=== PATIENT | female | born 1960 | race African-American/Black ===

== ENCOUNTER 2017-02-28 15:21 | Inpatient (IN) | payer MEDICAID, OTHER ==
[~2017-02-28] VITALS: Ht 154.9 cm; Wt 82.6 kg
[~2017-02-28 15:21] MED LIST: AMLO10TA80 PO; LEVVL SUBCUT; LIDOCAINE HCL 1% 20ML VIAL (Pyxis) INJ ONE; METO50TA5 PO; SODIUM BICARBONATE 4% (2.4MEQ) 5ML VIAL IV ONE
[2017-02-28 16:38] LABS: HEMATOCRIT. 28.7 % (36.0-48.0); MEAN CORPUSCULAR HEMOGLOBIN 26.6 pg (28.0-32.0); MEAN CORPUSCULAR VOLUME 94.7 fL (81.0-99.0); MEAN PLATELET VOLUME 9.2 fl (7.4-10.4); PLATELET 498 x1000/uL (130-400); RED BLOOD CELL COUNT 3.03 mill/uL (4.2-5.4); RED CELL DISTRIBUTION WIDTH 17.5 % (11.6-14.6); WHITE BLOOD COUNT 15.1 x1000/uL (4.5-11.0)
[2017-02-28 16:43] LABS: BG BASE EXCESS -25.6 mmol/L (-2.0-2.0); BG DEOXYHEMOGLOBIN 3.5 % (0.0-5.0); BG FRACTION INSPIRED OXYGEN 21; BG HCO3 ACT 4.4 mmol/L (22.0-26.0); BG METHEMOGLOBIN 0.3 % (0.0-1.5); BG OXYGEN SATURATION 96.5 % (92.0-98.5); BG OXYHEMOGLOBIN 96.2 % (94.0-97.0); BG PCO2 19.3 mmHg (35.0-45.0); BG PH 6.971 (7.350-7.450); BG PO2 112.9 mmHg (75.0-100.0); BG SAMPLE SITE RIGHT BRACHIAL; BG TOTAL HEMOGLOBIN 8.9 g/dL (12.0-18.0); BG VENT MODE ROOM AIR
[2017-02-28 16:46] LABS: DIFFERENTIAL COMMENT 1
[2017-02-28 16:47] LABS: D-DIMER 1.84 mg/L FEU (<0.50); INR 1.3; PARTIAL THROMBOPLASTIN TIME 34.9 sec (24.0-34.0)
[2017-02-28 16:52] LABS: ALANINE AMINOTRANSFERASE 11 IU/L (13-61); ALBUMIN 2.9 g/dL (3.4-5.0); ANION GAP 33; CALCIUM 8.5 mg/dL (8.5-10.1); CHLORIDE 103 mEq/L (98-107); INDEX HEMOLYSI 1 (1-3); INDEX ICTERIC 1 (1-4); INDEX LIPEMIC 1 (1-3); TROPONIN I 0.03 ng/mL (0.00-0.04); eGFR 5 mL/min (>60)
[2017-02-28 16:58] LABS: LACTIC ACID 2.2 mmol/L (0.4-2.0)
[2017-02-28 16:59] LABS: CARBON DIOXIDE 5 mEq/L (21-32); UREA NITROGEN BLOOD 127 mg/dL (7-21)
[2017-02-28] MEDS ORDERED: SODIUM BICARBONATE 8.4% 1 MEQ/ML 50ML SYR IV ONE ×3 (17:00→21:30)
[2017-02-28 17:04] LABS: NT PRO B-TYPE NATRIURETIC PEP 106557 pg/mL (5-125)
[2017-02-28 17:11] LABS: PLATELET ESTIMATE INCREASED
[2017-02-28 17:12] LABS: ANISOCYTOSIS 1+
[2017-02-28 17:13] LABS: HYPOCHROMASIA 1+
[2017-02-28] MEDS ORDERED: SODIUM POLYSTYRENE SULFONATE 15 G/60 ML BOT PO ONE (17:15)
[2017-02-28] MEDS ORDERED: INSULIN REGULAR (HUMULIN R) 300UNITS/3ML IV ONE (17:15)
[2017-02-28] MEDS ORDERED: DEXTROSE 50% WATER 50ML SYRINGE IV ONE (17:15)
[2017-02-28] MEDS ORDERED: CALCIUM CHLORIDE 1GM/10ML SYR IV ONE (17:15)
[2017-02-28] MEDS ORDERED: LEVOFLOXACIN 750MG PREMIX 150 ML IV ONE (18:15)
[2017-02-28] MEDS ORDERED: ONDANSETRON HCL 4MG/2ML VIAL IV PRN (20:15)
[2017-02-28] MEDS ORDERED: DEXTROSE 50% WATER 50ML SYRINGE IV PRN (20:15)
[2017-02-28] MEDS ORDERED: IPRATROPIUM/ALBUTEROL 0.5-3(2.5)MG/3ML NEB INH PRN (20:15)
[2017-02-28] MEDS ORDERED: DOCUSATE SODIUM 100MG CAPSULE PO PRN (20:15)
[2017-02-28] MEDS ORDERED: INSULIN REGULAR (HUMULIN R) 300UNITS/3ML SUBCUT ONE (20:30)
[2017-02-28 21:02] LABS: BG BASE EXCESS -23.2 mmol/L (-2.0-2.0); BG CARBOXYHEMOGLOBIN 0.2 % (0.5-1.5); BG DEOXYHEMOGLOBIN 2.4 % (0.0-5.0); BG FRACTION INSPIRED OXYGEN 28; BG HCO3 ACT 5.3 mmol/L (22.0-26.0); BG METHEMOGLOBIN 0.2 % (0.0-1.5); BG OXYGEN SATURATION 97.6 % (92.0-98.5); BG OXYHEMOGLOBIN 97.2 % (94.0-97.0); BG PCO2 19.2 mmHg (35.0-45.0); BG PH 7.055 (7.350-7.450); BG PO2 121.5 mmHg (75.0-100.0); BG SAMPLE SITE RIGHT BRACHIAL; BG TOTAL HEMOGLOBIN 8.3 g/dL (12.0-18.0); BG VENT MODE NASAL CANNULA
[2017-02-28 21:41] LABS: HEPATITIS B SURFACE ANTIGEN NEGATIVE
[2017-02-28 22:02] VITALS: BP 122/62
[2017-02-28 22:08] LABS: HEPATITIS C VIR.AB 0.13 INDEXVAL (0.00-0.80)
[2017-02-28 22:09] LABS: HEPATITIS B CORE AB IGM NEGATIVE
[2017-02-28 22:11] LABS: HEPATITIS A AB IGM NEGATIVE (NEGATIVE)
[2017-02-28] MEDS: BLOOD SUGAR DIAGNOSTIC STRIP TEST SCH (23:09)
[2017-02-28] MEDS: INSULIN LISPRO 100 UNITS/ML SUBCUT SCH (23:09)
[2017-03-01] VITALS (12 sets, daily range): BP systolic 111–173; BP diastolic 50–82
[2017-03-01] MEDS ORDERED: CLONIDINE 0.1MG TABLET PO PRN (01:15)
[2017-03-01] MEDS: EPOETIN ALFA 10000UNITS/ML VIAL SUBCUT SCH (01:39)
[2017-03-01] MEDS: DIPHENHYDRAMINE 25MG CAPSULE PO PRN ×2 (01:43→22:36)
[2017-03-01 06:44] LABS: HEMOGLOBIN. 8.1 g/dL (12.0-16.0); MEAN CORPUSCULAR HEMOGLOBIN 26.5 pg (28.0-32.0); MEAN CORPUSCULAR VOLUME 85.4 fL (81.0-99.0); MEAN PLATELET VOLUME 8.6 fl (7.4-10.4); PLATELET 448 x1000/uL (130-400); RED BLOOD CELL COUNT 3.04 mill/uL (4.2-5.4); RED CELL DISTRIBUTION WIDTH 15.7 % (11.6-14.6); WHITE BLOOD COUNT 17.1 x1000/uL (4.5-11.0)
[2017-03-01] MEDS: BLOOD SUGAR DIAGNOSTIC STRIP TEST SCH ×4 (07:30→21:27)
[2017-03-01 07:44] LABS: CALCIUM 9.1 mg/dL (8.5-10.1); MAGNESIUM 2.3 mg/dL (1.8-2.4); PHOSPHORUS 4.1 mg/dL (2.5-4.9)
[2017-03-01 08:22] LABS: DIFFERENTIAL COMMENT 1
[2017-03-01] MEDS: INSULIN LISPRO 100 UNITS/ML SUBCUT SCH ×4 (08:46→21:29)
[2017-03-01] MEDS: OMEPRAZOLE 20MG CAPSULE EXTENDED RELEASE PO SCH (08:47)
[2017-03-01] MEDS: IPRATROPIUM/ALBUTEROL 0.5-3(2.5)MG/3ML NEB INH SCH ×3 (09:53→20:38)
[2017-03-01] MEDS: FERROUS SULFATE 325MG TABLET PO SCH ×2 (15:04→17:24)
[2017-03-01] MEDS: METOPROLOL TARTRATE 50MG TABLET PO SCH ×2 (15:04→21:28)
[2017-03-01] MEDS: AMLODIPINE 10MG TABLET PO SCH (15:04)
[2017-03-01] MEDS: INSULIN DETEMIR UD 100 UNITS/ML SYR SUBCUT SCH (21:30)
[2017-03-02] VITALS (12 sets, daily range): BP systolic 119–143; BP diastolic 55–97
[2017-03-02] MEDS: IPRATROPIUM/ALBUTEROL 0.5-3(2.5)MG/3ML NEB INH SCH ×4 (00:26→20:24)
[2017-03-02 06:42] LABS: BASOPHILS % 1.1 % (0.0-2.0); EOSINOPHILS % 0.4 % (0.0-5.0); HEMATOCRIT. 26.4 % (36.0-48.0); HEMOGLOBIN. 8.4 g/dL (12.0-16.0); LYMPHOCYTES % 19.1 % (20.0-50.0); MEAN CORPUSCULAR HEMOGLOBIN 26.9 pg (28.0-32.0); MEAN CORPUSCULAR HGB CONC 31.7 g/dL (31.0-37.0); MEAN CORPUSCULAR VOLUME 84.9 fL (81.0-99.0); MEAN PLATELET VOLUME 8.8 fl (7.4-10.4); MONOCYTES % 7.8 % (2.0-8.0); NEUTROPHILS % 71.6 % (40.0-76.0); PLATELET 421 x1000/uL (130-400); RED BLOOD CELL COUNT 3.11 mill/uL (4.2-5.4); RED CELL DISTRIBUTION WIDTH 16.1 % (11.6-14.6); WHITE BLOOD COUNT 14.2 x1000/uL (4.5-11.0)
[2017-03-02 06:46] LABS: CALCIUM 7.6 mg/dL (8.5-10.1)
[2017-03-02] MEDS: OMEPRAZOLE 20MG CAPSULE EXTENDED RELEASE PO SCH (07:30)
[2017-03-02] MEDS: FERROUS SULFATE 325MG TABLET PO SCH ×3 (07:52→18:29)
[2017-03-02] MEDS: BLOOD SUGAR DIAGNOSTIC STRIP TEST SCH ×4 (08:13→21:36)
[2017-03-02] MEDS: METOPROLOL TARTRATE 50MG TABLET PO SCH ×2 (08:13→20:46)
[2017-03-02] MEDS: AMLODIPINE 10MG TABLET PO SCH (08:13)
[2017-03-02] MEDS: INSULIN LISPRO 100 UNITS/ML SUBCUT SCH ×4 (08:21→20:49)
[2017-03-02] MEDS ORDERED: HEPARIN SODIUM 1,000 UNIT/1ML VIAL IV NR (11:00)
[2017-03-02] MEDS: INSULIN DETEMIR UD 100 UNITS/ML SYR SUBCUT SCH ×2 (12:19→22:01)
[2017-03-02 14:17] LABS: PLATELET ESTIMATE INCREASED
[2017-03-02] MEDS ORDERED: LEVOFLOXACIN 250MG PREMIX 50 ML IV SCH (18:00)
[2017-03-02] MEDS: DIPHENHYDRAMINE 25MG CAPSULE PO PRN (20:50)
[2017-03-02] MEDS: EPOETIN ALFA 10000UNITS/ML VIAL SUBCUT SCH (21:55)
[2017-03-03] VITALS (18 sets, daily range): BP systolic 116–158; BP diastolic 55–74
[2017-03-03] MEDS: IPRATROPIUM/ALBUTEROL 0.5-3(2.5)MG/3ML NEB INH SCH ×4 (01:22→21:04)
[2017-03-03] MEDS: OMEPRAZOLE 20MG CAPSULE EXTENDED RELEASE PO SCH (06:38)
[2017-03-03 06:49] LABS: EOSINOPHILS % 1.7 % (0.0-5.0); HEMATOCRIT. 27.9 % (36.0-48.0); HEMOGLOBIN. 8.7 g/dL (12.0-16.0); LYMPHOCYTES % 16.9 % (20.0-50.0); MEAN CORPUSCULAR HEMOGLOBIN 26.7 pg (28.0-32.0); MEAN CORPUSCULAR HGB CONC 31.3 g/dL (31.0-37.0); MEAN CORPUSCULAR VOLUME 85.3 fL (81.0-99.0); MEAN PLATELET VOLUME 8.6 fl (7.4-10.4); MONOCYTES % 11.6 % (2.0-8.0); NEUTROPHILS % 68.8 % (40.0-76.0); PLATELET 354 x1000/uL (130-400); RED BLOOD CELL COUNT 3.27 mill/uL (4.2-5.4); RED CELL DISTRIBUTION WIDTH 16.2 % (11.6-14.6); WHITE BLOOD COUNT 13.4 x1000/uL (4.5-11.0)
[2017-03-03 07:20] LABS: MAGNESIUM 1.9 mg/dL (1.8-2.4); PHOSPHORUS 2.6 mg/dL (2.5-4.9)
[2017-03-03] MEDS: BLOOD SUGAR DIAGNOSTIC STRIP TEST SCH ×4 (07:55→21:32)
[2017-03-03] MEDS: INSULIN LISPRO 100 UNITS/ML SUBCUT SCH ×4 (08:00→21:39)
[2017-03-03] MEDS: AMLODIPINE 10MG TABLET PO SCH (08:06)
[2017-03-03] MEDS: FERROUS SULFATE 325MG TABLET PO SCH ×3 (08:06→17:58)
[2017-03-03] MEDS: METOPROLOL TARTRATE 50MG TABLET PO SCH ×2 (08:06→21:32)
[2017-03-03] MEDS: INSULIN DETEMIR UD 100 UNITS/ML SYR SUBCUT SCH ×2 (10:02→21:39)
[2017-03-03] MEDS ORDERED: FENTANYL CITRATE/PF 50MCG/ML 2ML VIAL IV ONE (11:30)
[2017-03-03] MEDS: ACETAMINOPHEN 325MG TABLET PO PRN (17:33)
[2017-03-03] MEDS: DIPHENHYDRAMINE 25MG CAPSULE PO PRN (21:35)
[2017-03-04] VITALS (9 sets, daily range): BP systolic 123–159; BP diastolic 62–90
[2017-03-04] MEDS: IPRATROPIUM/ALBUTEROL 0.5-3(2.5)MG/3ML NEB INH SCH ×3 (01:29→12:00)
[2017-03-04 06:23] LABS: BASOPHILS % 1.2 % (0.0-2.0); HEMATOCRIT. 26.7 % (36.0-48.0); HEMOGLOBIN. 8.3 g/dL (12.0-16.0); LYMPHOCYTES % 13.6 % (20.0-50.0); MEAN CORPUSCULAR HEMOGLOBIN 26.6 pg (28.0-32.0); MEAN CORPUSCULAR HGB CONC 31.2 g/dL (31.0-37.0); MEAN CORPUSCULAR VOLUME 85.2 fL (81.0-99.0); MEAN PLATELET VOLUME 8.7 fl (7.4-10.4); NEUTROPHILS % 71.2 % (40.0-76.0); PLATELET 314 x1000/uL (130-400); RED BLOOD CELL COUNT 3.13 mill/uL (4.2-5.4); RED CELL DISTRIBUTION WIDTH 15.8 % (11.6-14.6); WHITE BLOOD COUNT 13.7 x1000/uL (4.5-11.0)
[2017-03-04 07:19] LABS: CALCIUM 8.1 mg/dL (8.5-10.1)
[2017-03-04] MEDS: BLOOD SUGAR DIAGNOSTIC STRIP TEST SCH ×2 (07:30→12:18)
[2017-03-04] MEDS: FERROUS SULFATE 325MG TABLET PO SCH ×2 (08:37→12:23)
[2017-03-04] MEDS: INSULIN LISPRO 100 UNITS/ML SUBCUT SCH ×2 (08:37→12:24)
[2017-03-04] MEDS: AMLODIPINE 10MG TABLET PO SCH (08:38)
[2017-03-04] MEDS: METOPROLOL TARTRATE 50MG TABLET PO SCH (08:38)
[2017-03-04] MEDS ORDERED: FAMOTIDINE 20MG TABLET PO SCH (09:00)
[2017-03-04] MEDS: INSULIN DETEMIR UD 100 UNITS/ML SYR SUBCUT SCH (09:32)
[2017-03-04] MEDS ORDERED: TRAMADOL 50MG TABLET PO NR (12:04)
[2017-03-04] MEDS: ACETAMINOPHEN 325MG TABLET PO PRN (12:50)
== END 2017-03-04 14:50 | disposition home or self-care (01) | DRG 950 ==
LOC: ER 15:22 → 5EST 17:53 → SUPCPDRO 18:55 → 5EST 03-02 08:05
PROVIDERS: ADMIT Family Medicine Adult Medicine; ATTEND Family Medicine Adult Medicine
PROC: 5A1D60Z (ICD-10-PCS; principal; 2017-02-28)
PROC: 06HM33Z Insertion of Infusion Device into Right Femoral Vein, Percutaneous Approach (ICD-10-PCS; 2017-02-28)
PROC: B54BZZA Ultrasonography of Right Lower Extremity Veins, Guidance (ICD-10-PCS; 2017-02-28)
PROC: 02H633Z Insertion of Infusion Device into Right Atrium, Percutaneous Approach (ICD-10-PCS; 2017-03-03)
PROC: B2141ZZ Fluoroscopy of Right Heart using Low Osmolar Contrast (ICD-10-PCS; 2017-03-03)
PROC: B548ZZA Ultrasonography of Superior Vena Cava, Guidance (ICD-10-PCS; 2017-03-03)
DX: E87.70 Fluid overload, unspecified (principal); J96.00 Acute respiratory failure, unspecified whether with hypoxia or hypercapnia; J90 Pleural effusion, not elsewhere classified; E44.0 Moderate protein-calorie malnutrition; E11.52 Type 2 diabetes mellitus with diabetic peripheral angiopathy with gangrene; E87.2 Acidosis; I12.0 Hypertensive chronic kidney disease with stage 5 chronic kidney disease or end stage renal disease; N18.6 End stage renal disease; I27.2 Other secondary pulmonary hypertension; E11.65 Type 2 diabetes mellitus with hyperglycemia; E11.22 Type 2 diabetes mellitus with diabetic chronic kidney disease; D63.8 Anemia in other chronic diseases classified elsewhere; D72.829 Elevated white blood cell count, unspecified; E87.5 Hyperkalemia; D47.3 Essential (hemorrhagic) thrombocythemia; Z89.512 Acquired absence of left leg below knee; Z99.2 Dependence on renal dialysis; Z68.34 Body mass index [BMI] 34.0-34.9, adult; Z88.0 Allergy status to penicillin; Z79.899 Other long term (current) drug therapy
CPT/HCPCS: 36415; 36556; 36558; 36600; 71010; 76937; 77001; 80048; 80053; 82375; 82805; 82962; 83036; 83540; 83550; 83605; 83735; 83880; 84100; 84443; 84484; 85025; 85379; 85610; 85730; 86705; 86709; 86803; 86850; 86870; 86900; 87040; 87340; 93005; 93923; 94640; 96372; 96374; 96375; 97162; 97530; 99285; A6261; C1750; C1752; J0885; J1644; J1815; J1956; J2405; J3490; J7030; J7050; J7620; Q0163; A4315

== ENCOUNTER 2017-06-15 11:51 | Emergency (ER) | payer MEDICAID, OTHER ==
[~2017-06-15] VITALS: Ht 165.1 cm; Wt 68.0 kg
[~2017-06-15 11:51] MED LIST changes: -LIDOCAINE HCL 1% 20ML VIAL (Pyxis) INJ ONE; -SODIUM BICARBONATE 4% (2.4MEQ) 5ML VIAL IV ONE
[2017-06-15] MEDS ORDERED: MORPHINE SULFATE 4 MG/ML CPJ (NOT FOR IM USE) IV STA (12:42)
[2017-06-15] MEDS ORDERED: ONDANSETRON HCL 4MG/2ML VIAL IV STA (12:42)
[2017-06-15] MEDS ORDERED: VANCOMYCIN 1 G PREMIX 200 ML IV ONE (12:45)
[2017-06-15] MEDS ORDERED: SODIUM CHLORIDE 0.9% 1000ML BAG (SEPSIS BOLUS) IV ONE (12:45)
[2017-06-15] MEDS ORDERED: LEVOFLOXACIN 750MG PREMIX 150 ML IV ONE (12:45)
[2017-06-15 13:21] LABS: HEMATOCRIT. 31.6 % (36.0-48.0); HEMOGLOBIN. 9.5 g/dL (12.0-16.0); MEAN CORPUSCULAR HEMOGLOBIN 25.8 pg (28.0-32.0); MEAN CORPUSCULAR VOLUME 85.5 fL (81.0-99.0); MEAN PLATELET VOLUME 8.4 fl (7.4-10.4); PLATELET 594 x1000/uL (130-400); RED BLOOD CELL COUNT 3.69 mill/uL (4.2-5.4); RED CELL DISTRIBUTION WIDTH 16.3 % (11.6-14.6)
[2017-06-15 13:29] LABS: INR 1.3; PARTIAL THROMBOPLASTIN TIME 32.6 sec (23.4-31.0)
[2017-06-15 13:32] LABS: CARBON DIOXIDE 29 mEq/L (21-32); CHLORIDE 94 mEq/L (98-107)
[2017-06-15 13:38] LABS: TROPONIN I < 0.02 ng/mL (0.00-0.04)
[2017-06-15 14:11] LABS: PLATELET ESTIMATE INCREASED
[2017-06-15] MEDS ORDERED: HYDROMORPHONE HCL/PF 2MG/ML CPJ IV ONE (14:45)
[2017-06-15 20:20] VITALS: BP 125/77
[2017-06-15 20:34] LABS: CLARITY URINE TURBID (CLEAR); COLOR URINE DARK YELLOW (YELLOW); GLUCOSE URINE TRACE (NEGATIVE); KETONES URINE TRACE (NEGATIVE); LEUKOCYTE ESTERASE URINE 3+ (NEGATIVE); NITRITE URINE NEGATIVE (NEGATIVE); OCCULT BLOOD URINE 3+ (NEGATIVE); PROTEIN URINE 3+ (NEGATIVE); SPECIFIC GRAVITY URINE 1.029 (1.005-1.030)
== END 2017-06-15 21:35 | disposition short-term general hospital (02) ==
LOC: ER 11:51 → EDBEDREQ 17:15 → EDBEDREQTM 17:15 → CANBEDREQ 20:04 → ER 21:35
DX: E11.52 Type 2 diabetes mellitus with diabetic peripheral angiopathy with gangrene (principal); A41.9 Sepsis, unspecified organism; R65.20 Severe sepsis without septic shock; D72.829 Elevated white blood cell count, unspecified; I12.0 Hypertensive chronic kidney disease with stage 5 chronic kidney disease or end stage renal disease; E11.22 Type 2 diabetes mellitus with diabetic chronic kidney disease; N18.6 End stage renal disease; Z79.4 Long term (current) use of insulin; Z89.512 Acquired absence of left leg below knee; Z99.2 Dependence on renal dialysis
CPT/HCPCS: 36415; 71010; 73610; 73630; 80053; 81001; 82962; 83605; 84484; 85025; 85610; 85730; 86850; 86900; 86901; 87040; 87070; 87077; 87086; 87186; 87205; 93005; 96365; 96366; 96368; 96375; 99291; J1170; J1956; J2270; J2405; J3370; J7030; Z7610

== ENCOUNTER 2017-10-31 15:52 | Inpatient (IN) | payer MEDICAID ==
[~2017-10-31] VITALS: Ht 129.5 cm; Wt 59.0 kg
[~2017-10-31 15:52] MED LIST changes: +METO-539 PO; -METO50TA5 PO
[2017-10-31] MEDS ORDERED: DEXT 10% WATER 1,000 ML IV ONE (20:49)
[2017-10-31] MEDS ORDERED: ASPIRIN 81MG TABLET PO ONE (21:00)
[2017-10-31 21:53] LABS: HEMATOCRIT. 47.9 % (36.0-48.0); MEAN CORPUSCULAR HEMOGLOBIN 29.3 pg (28.0-32.0); MEAN CORPUSCULAR VOLUME 93.1 fL (81.0-99.0); PLATELET 187 x1000/uL (130-400); RED BLOOD CELL COUNT 5.14 mill/uL (4.2-5.4); RED CELL DISTRIBUTION WIDTH 15.1 % (11.6-14.6)
[2017-10-31 22:10] LABS: CARBON DIOXIDE 20 mEq/L (21-32); CHLORIDE 103 mEq/L (98-107); CREATINE KINASE 136 IU/L (26-192); CREATINE KINASE MB FRACTION 7.4 ng/mL (0.5-3.6); ETHANOL BLOOD < 10 mg/dL; TROPONIN I 0.03 ng/mL (0.00-0.04)
[2017-10-31 22:12] LABS: PLATELET ESTIMATE NORMAL
[2017-10-31] MEDS ORDERED: SODIUM BICARBONATE 8.4% 1 MEQ/ML 50ML SYR IV SCH (23:00)
[2017-10-31] MEDS ORDERED: DEXTROSE 50% WATER 50ML SYRINGE IV SCH (23:00)
[2017-10-31] MEDS ORDERED: INSULIN REGULAR (HUMULIN R) 300UNITS/3ML IV SCH (23:00)
[2017-10-31] MEDS: SODIUM POLYSTYRENE SULFONATE 15 G/60 ML BOT PO SCH (23:00)
[2017-10-31] MEDS ORDERED: CALCIUM CHLORIDE 1GM/10ML SYR IV SCH (23:00)
[2017-10-31 23:57] LABS: INR 1.1; PARTIAL THROMBOPLASTIN TIME 27.1 sec (23.4-31.0); PROTHROMBIN TIME 11.7 sec (9.4-11.6)
[2017-11-01] MEDS ORDERED: ASPIRIN 81MG TABLET PO SCH (03:30)
[2017-11-01] MEDS: SODIUM POLYSTYRENE SULFONATE 15 G/60 ML BOT PO SCH (03:57)
[2017-11-01 09:25] VITALS: BP 150/69
[2017-11-01] MEDS ORDERED: LOSA100T14 PO (09:36)
[2017-11-01] MEDS ORDERED: LEVVL SQ (09:36)
[2017-11-01] MEDS ORDERED: HYDR-4009 PO ×2 (09:36→15:04)
[2017-11-01 10:41] LABS: BASOPHILS % 0.5 % (0.0-2.0); EOSINOPHILS % 1.7 % (0.0-5.0); HEMATOCRIT. 45.6 % (36.0-48.0); HEMOGLOBIN. 14.7 g/dL (12.0-16.0); LYMPHOCYTES % 20.8 % (20.0-50.0); MEAN CORPUSCULAR HEMOGLOBIN 29.4 pg (28.0-32.0); MEAN CORPUSCULAR VOLUME 91.5 fL (81.0-99.0); MEAN PLATELET VOLUME 9.5 fl (7.4-10.4); MONOCYTES % 4.2 % (2.0-8.0); NEUTROPHILS % 72.8 % (40.0-76.0); PLATELET 336 x1000/uL (130-400); RED BLOOD CELL COUNT 4.98 mill/uL (4.2-5.4); RED CELL DISTRIBUTION WIDTH 15.8 % (11.6-14.6)
[2017-11-01] MEDS ORDERED: CLONIDINE 0.1MG TABLET PO PRN (11:15)
[2017-11-01] MEDS ORDERED: DEXTROSE 50% WATER 50ML SYRINGE IV PRN (11:15)
[2017-11-01] MEDS ORDERED: IPRATROPIUM/ALBUTEROL 0.5-3(2.5)MG/3ML NEB INH PRN (11:15)
[2017-11-01] MEDS ORDERED: ACETAMINOPHEN 325MG TABLET PO PRN (11:15)
[2017-11-01] MEDS ORDERED: ONDANSETRON HCL 4MG/2ML VIAL IV PRN (11:15)
[2017-11-01] MEDS ORDERED: HYDROCODONE/ACETAMINOPHEN 5/325MG TABLET PO PRN (11:15)
[2017-11-01] MEDS ORDERED: DIPHENHYDRAMINE 50MG/ML VIAL IV PRN (11:15)
[2017-11-01 12:00] VITALS: BP 108/78
[2017-11-01] MEDS: BLOOD SUGAR DIAGNOSTIC STRIP TEST SCH ×2 (12:20→17:20)
[2017-11-01 12:46] VITALS: BP 150/69
[2017-11-01] MEDS: INSULIN LISPRO 100 UNITS/ML SUBCUT SCH ×2 (12:50→17:50)
[2017-11-01 16:00] VITALS: BP 186/65
[2017-11-01 20:05] VITALS: BP 161/92
[2017-11-01 20:45] VITALS: BP 119/56
[2017-11-01] MEDS ORDERED: INSULIN GLARGINE UD 100 UNITS/ML SYR SUBCUT SCH (22:00)
[2017-11-02] MEDS ORDERED: AMLODIPINE 10MG TABLET PO SCH (09:00)
[2017-11-02] MEDS ORDERED: LOSARTAN POTASSIUM 100 MG TABLET PO SCH (09:00)
== END 2017-11-01 21:53 | disposition home or self-care (01) | DRG 420 ==
LOC: ER 15:52 → 6WST 23:16 → EDBEDREQ 23:22 → EDBEDREQTM 23:22 → ENRESERV 11-01 07:37 → 6WST 11-01 09:50
PROVIDERS: ADMIT Internal Medicine; ATTEND Internal Medicine
PROC: 5A1D70Z Performance of Urinary Filtration, Intermittent, Less than 6 Hours Per Day (ICD-10-PCS; principal; 2017-10-31)
PROC: 5A1D70Z Performance of Urinary Filtration, Intermittent, Less than 6 Hours Per Day (ICD-10-PCS; 2017-11-01)
DX: E11.649 Type 2 diabetes mellitus with hypoglycemia without coma (principal); I12.0 Hypertensive chronic kidney disease with stage 5 chronic kidney disease or end stage renal disease; E11.22 Type 2 diabetes mellitus with diabetic chronic kidney disease; N18.6 End stage renal disease; E87.5 Hyperkalemia; E11.51 Type 2 diabetes mellitus with diabetic peripheral angiopathy without gangrene; I25.2 Old myocardial infarction; Z79.4 Long term (current) use of insulin; Z89.512 Acquired absence of left leg below knee; Z89.611 Acquired absence of right leg above knee; Z91.19 Patient's noncompliance with other medical treatment and regimen; Z99.2 Dependence on renal dialysis; Z88.0 Allergy status to penicillin; Z79.899 Other long term (current) drug therapy
CPT/HCPCS: 36415; 71045; 80048; 80053; 82550; 82553; 82962; 83036; 83605; 83690; 84132; 84484; 85025; 85610; 85730; 87804; 93005; 96374; 99291; G0482; J1815; J3490

== ENCOUNTER 2018-10-09 11:01 | Inpatient (IN) | payer MEDICAID ==
[2018-10-09] VITALS (14 sets, daily range): BP systolic 121–182; BP diastolic 56–100
[~2018-10-09] VITALS: Ht 157.5 cm; Wt 63.2 kg
[~2018-10-09 11:01] MED LIST changes: +ASA5EC PO; +CLOP75TA16 PO; +HYDR-4009 PO; +LEVVL SQ; -LEVVL SUBCUT; +LOSA100T14 PO
[2018-10-09] MEDS ORDERED: SODIUM CHLORIDE 0.9% 1000ML BAG (SEPSIS BOLUS) IV ONE (11:15)
[2018-10-09 11:36] LABS: BG BASE EXCESS -27.6 mmol/L (-2.0-2.0); BG CARBOXYHEMOGLOBIN 0.7 % (0.5-1.5); BG DEOXYHEMOGLOBIN 2.3 % (0.0-5.0); BG FRACTION INSPIRED OXYGEN 21; BG HCO3 ACT 3.1 mmol/L (22.0-26.0); BG METHEMOGLOBIN 0.1 % (0.0-1.5); BG OXYGEN SATURATION 97.7 % (92.0-98.5); BG OXYHEMOGLOBIN 96.9 % (94.0-97.0); BG PCO2 14.9 mmHg (35.0-45.0); BG PH 6.934 (7.350-7.450); BG PO2 149.7 mmHg (75.0-100.0); BG SAMPLE SITE RIGHT BRACHIAL; BG TOTAL HEMOGLOBIN 11.1 g/dL (12.0-18.0); BG VENT MODE ROOM AIR
[2018-10-09] MEDS ORDERED: SODIUM BICARBONATE 8.4% 1 MEQ/ML 50ML SYR IV ONE (11:45)
[2018-10-09] MEDS ORDERED: INSULIN REGULAR (DRIP) 100 UNITS in SODIUM CHLORIDE 0.9% 100 ML IV ONE (11:45)
[2018-10-09] MEDS ORDERED: INSULIN REGULAR (HUMULIN R) 300UNITS/3ML IV ONE (11:45)
[2018-10-09] MEDS ORDERED: CALCIUM CHLORIDE 1GM/10ML SYR IV ONE (11:45)
[2018-10-09] MEDS ORDERED: INSULIN REGULAR (DRIP) 100 UNITS in SODIUM CHLORIDE 0.9% 99 ML IV ONE (11:45)
[2018-10-09 11:50] LABS: HEMATOCRIT. 38.9 % (36.0-48.0); HEMOGLOBIN. 10.4 g/dL (12.0-16.0); MEAN CORPUSCULAR HEMOGLOBIN 30.5 pg (28.0-32.0); MEAN CORPUSCULAR VOLUME 114.4 fL (81.0-99.0); MEAN PLATELET VOLUME 10.4 fl (7.4-10.4); PLATELET 383 x1000/uL (130-400); RED CELL DISTRIBUTION WIDTH 19.8 % (11.6-14.6)
[2018-10-09 11:55] LABS: CHLORIDE 86 mEq/L (98-107)
[2018-10-09 12:01] LABS: ETHANOL BLOOD < 10 mg/dL
[2018-10-09 12:06] LABS: INR 1.2
[2018-10-09] MEDS ORDERED: NOREPINEPHRINE 4MG/250ML PMX 250 ML IV ONE ×2 (12:13→20:30)
[2018-10-09] MEDS ORDERED: NOREPINEPHRINE 4 MG in DEXT 5% WATER 246 ML IV ONE (12:15)
[2018-10-09] MEDS ORDERED: LEVOFLOXACIN 500MG PREMIX 100 ML IV ONE (12:15)
[2018-10-09 12:23] LABS: PHOSPHORUS 11.9 mg/dL (2.5-4.9)
[2018-10-09] MEDS ORDERED: IPRATROPIUM/ALBUTEROL 0.5-3(2.5)MG/3ML NEB HHN PRN (12:30)
[2018-10-09] MEDS ORDERED: LIDOCAINE HCL 1% 20ML VIAL (Pyxis) INJ ONE (12:47)
[2018-10-09] MEDS: VANCOMYCIN 1 G PREMIX 200 ML IV SCH ×2 (12:49→15:11)
[2018-10-09 12:50] LABS: BETA HYDROXYBUTYRATE 17.6 mMol/L (0.0-0.3)
[2018-10-09 13:29] LABS: PLATELET ESTIMATE NORMAL
[2018-10-09] MEDS ORDERED: SODIUM CHLORIDE 0.9% 1,000 ML IV SCH (15:00)
[2018-10-09] MEDS ORDERED: SODIUM BICARBONATE 5MEQ SYR 100 MEQ in DEXTROSE 5% WATER 1,000 ML IV SCH (15:00)
[2018-10-09] MEDS ORDERED: SODIUM BICARBONATE 8.4% 1 MEQ/ML 50ML SYR IV NR (16:00)
[2018-10-09] MEDS ORDERED: CLOPIDOGREL 75MG TABLET PO NR (16:15)
[2018-10-09] MEDS ORDERED: ASPIRIN 81MG TABLET PO NR (16:15)
[2018-10-09 17:42] LABS: BG BASE EXCESS -19.2 mmol/L (-2.0-2.0); BG CARBOXYHEMOGLOBIN 0.7 % (0.5-1.5); BG DEOXYHEMOGLOBIN 1.7 % (0.0-5.0); BG FRACTION INSPIRED OXYGEN 32; BG HCO3 ACT 9.3 mmol/L (22.0-26.0); BG METHEMOGLOBIN 0.1 % (0.0-1.5); BG OXYGEN SATURATION 98.3 % (92.0-98.5); BG OXYHEMOGLOBIN 97.5 % (94.0-97.0); BG PCO2 30.8 mmHg (35.0-45.0); BG PH 7.097 (7.350-7.450); BG PO2 153.6 mmHg (75.0-100.0); BG SAMPLE SITE RIGHT BRACHIAL; BG TOTAL HEMOGLOBIN 11.6 g/dL (12.0-18.0); BG VENT MODE NASAL CANNULA
[2018-10-09] MEDS ORDERED: METOCLOPRAMIDE HCL 10MG/2ML VIAL IV SCH (18:00)
[2018-10-09] MEDS ORDERED: DEXTROSE 50% WATER 50ML SYRINGE IV PRN ×2 (19:31→19:32)
[2018-10-09] MEDS ORDERED: INSULIN REGULAR (DRIP) 100 UNITS in SODIUM CHLORIDE 0.9% 100 ML IV SCH (20:00)
[2018-10-09] MEDS: BLOOD SUGAR DIAGNOSTIC STRIP TEST SCH ×2 (21:57→23:02)
[2018-10-09] MEDS ORDERED: PHENYLEPHRINE 40 MG in DEXT 5% WATER 246 ML IV PRN (22:06)
[2018-10-09] MEDS ORDERED: NOREPINEPHRINE 32 MG in DEXT 5% WATER 468 ML IV PRN (22:07)
[2018-10-09] MEDS ORDERED: DIPHENHYDRAMINE 50MG/ML VIAL IV PRN (22:54)
[2018-10-09] MEDS: PIPERACILLIN/TAZ 2.25G PREMIX 50 ML IV SCH (23:32)
[2018-10-09] MEDS: METOCLOPRAMIDE HCL 10MG/2ML VIAL IV SCH (23:46)
[2018-10-10] VITALS (69 sets, daily range): BP systolic 99–181; BP diastolic 46–97
[2018-10-10] MEDS ORDERED: VANCOMYCIN 500 MG PREMIX 100 ML IV SCH
[2018-10-10] MEDS: BLOOD SUGAR DIAGNOSTIC STRIP TEST SCH ×10 (00:17→21:26)
[2018-10-10] MEDS ORDERED: KCL 20MEQ/100ML PREMIX 100 ML IV NR (04:00)
[2018-10-10] MEDS: METOCLOPRAMIDE HCL 10MG/2ML VIAL IV SCH ×3 (05:41→17:38)
[2018-10-10] MEDS: PIPERACILLIN/TAZ 2.25G PREMIX 50 ML IV SCH ×3 (06:11→20:53)
[2018-10-10 07:14] LABS: HEMATOCRIT. 33.6 % (36.0-48.0); HEMOGLOBIN. 10.8 g/dL (12.0-16.0); MEAN CORPUSCULAR HEMOGLOBIN 30.4 pg (28.0-32.0); MEAN CORPUSCULAR VOLUME 94.5 fL (81.0-99.0); PLATELET 286 x1000/uL (130-400); RED BLOOD CELL COUNT 3.56 mill/uL (4.2-5.4); RED CELL DISTRIBUTION WIDTH 18.4 % (11.6-14.6)
[2018-10-10] MEDS: HYDRALAZINE 20MG/ML VIAL IV PRN ×2 (07:50→19:14)
[2018-10-10 07:54] LABS: CREATINE KINASE MB FRACTION 14.3 ng/mL (0.5-3.6)
[2018-10-10] MEDS ORDERED: PNEUMOCOCCAL 23-VAL P-SAC VAC 0.5 ML IM ONE (08:00)
[2018-10-10] MEDS ORDERED: BLOOD SUGAR DIAGNOSTIC STRIP TEST SCH (08:00)
[2018-10-10] MEDS: CLOPIDOGREL 75MG TABLET PO SCH (09:00)
[2018-10-10] MEDS: ASPIRIN 325MG EC TABLET PO SCH (09:00)
[2018-10-10] MEDS: PANTOPRAZOLE SODIUM 40 MG/VIAL IV SCH (09:11)
[2018-10-10 09:42] LABS: BG BASE EXCESS -4.9 mmol/L (-2.0-2.0); BG CARBOXYHEMOGLOBIN 0.6 % (0.5-1.5); BG DEOXYHEMOGLOBIN 5.4 % (0.0-5.0); BG FRACTION INSPIRED OXYGEN 21; BG METHEMOGLOBIN 0.3 % (0.0-1.5); BG OXYGEN SATURATION 94.6 % (92.0-98.5); BG OXYHEMOGLOBIN 93.7 % (94.0-97.0); BG PCO2 31.6 mmHg (35.0-45.0); BG PH 7.397 (7.350-7.450); BG PO2 74.6 mmHg (75.0-100.0); BG SAMPLE SITE RIGHT BRACHIAL; BG TOTAL HEMOGLOBIN 11.5 g/dL (12.0-18.0); BG VENT MODE ROOM AIR
[2018-10-10] MEDS: AMLODIPINE 2.5MG TABLET PO SCH ×2 (09:45→17:00)
[2018-10-10 09:47] LABS: PLATELET ESTIMATE NORMAL
[2018-10-10] MEDS ORDERED: DEXTROSE 50% WATER 50ML SYRINGE IV PRN (10:15)
[2018-10-10] MEDS: INSULIN LISPRO 100 UNITS/ML SUBCUT SCH ×3 (12:00→21:30)
[2018-10-10] MEDS ORDERED: THIAMINE HCL 100 MG in SODIUM CHLORIDE 0.9% 49 ML IV NR (15:00)
[2018-10-11] VITALS (14 sets, daily range): BP systolic 122–163; BP diastolic 55–90
[2018-10-11] MEDS: METOCLOPRAMIDE HCL 10MG/2ML VIAL IV SCH ×5 (00:11→23:07)
[2018-10-11] MEDS: PIPERACILLIN/TAZ 2.25G PREMIX 50 ML IV SCH ×5 (03:15→22:41)
[2018-10-11] MEDS: BLOOD SUGAR DIAGNOSTIC STRIP TEST SCH ×4 (05:28→20:40)
[2018-10-11] MEDS: INSULIN LISPRO 100 UNITS/ML SUBCUT SCH ×4 (05:35→20:41)
[2018-10-11 08:19] LABS: HEMATOCRIT. 30.5 % (36.0-48.0); HEMOGLOBIN. 9.8 g/dL (12.0-16.0); MEAN CORPUSCULAR VOLUME 96.8 fL (81.0-99.0); MEAN PLATELET VOLUME 9.4 fl (7.4-10.4); PLATELET 224 x1000/uL (130-400); RED BLOOD CELL COUNT 3.15 mill/uL (4.2-5.4)
[2018-10-11] MEDS: AMLODIPINE 2.5MG TABLET PO SCH ×2 (09:00→17:09)
[2018-10-11] MEDS: CLOPIDOGREL 75MG TABLET PO SCH (09:00)
[2018-10-11] MEDS: ASPIRIN 325MG EC TABLET PO SCH (09:00)
[2018-10-11] MEDS: PANTOPRAZOLE SODIUM 40 MG/VIAL IV SCH (09:12)
[2018-10-11 09:13] LABS: PLATELET ESTIMATE NORMAL
[2018-10-11] MEDS: INSULIN GLARGINE UD 100 UNITS/ML SYR SUBCUT SCH ×2 (11:11→22:39)
[2018-10-11] MEDS: HYDRALAZINE 20MG/ML VIAL IV PRN (12:53)
[2018-10-11] MEDS ORDERED: ONDANSETRON HCL 4MG/2ML INJ IV PRN (14:45)
[2018-10-11] MEDS ORDERED: SODIUM BICARBONATE 4% (2.4MEQ) 5ML VIAL IV ONE (15:02)
[2018-10-11] MEDS ORDERED: LIDOCAINE HCL 1% 20ML VIAL (Pyxis) INJ ONE (15:03)
[2018-10-11] MEDS: ACETAMINOPHEN 325MG TABLET PO PRN ×2 (15:28→22:39)
[2018-10-11] MEDS: ENOXAPARIN 30MG/0.3ML SYR SUBCUT SCH (16:41)
[2018-10-11] MEDS: GLIPIZIDE 5MG XL TABLET PO SCH (17:09)
[2018-10-11] MEDS ORDERED: VANCOMYCIN 1 G PREMIX 200 ML IV NR (18:00)
[2018-10-12] VITALS (16 sets, daily range): BP systolic 106–168; BP diastolic 57–85
[2018-10-12] MEDS: METOCLOPRAMIDE HCL 10MG/2ML VIAL IV SCH ×3 (05:53→17:17)
[2018-10-12] MEDS: PIPERACILLIN/TAZ 2.25G PREMIX 50 ML IV SCH ×3 (05:54→21:15)
[2018-10-12] MEDS: BLOOD SUGAR DIAGNOSTIC STRIP TEST SCH ×4 (05:54→21:16)
[2018-10-12] MEDS: INSULIN LISPRO 100 UNITS/ML SUBCUT SCH ×4 (07:20→21:00)
[2018-10-12] MEDS: GLIPIZIDE 5MG XL TABLET PO SCH (07:20)
[2018-10-12 07:26] LABS: HEMATOCRIT. 35.9 % (36.0-48.0); HEMOGLOBIN. 11.7 g/dL (12.0-16.0); MEAN CORPUSCULAR HEMOGLOBIN 30.5 pg (28.0-32.0); MEAN CORPUSCULAR VOLUME 93.9 fL (81.0-99.0); MEAN PLATELET VOLUME 9.4 fl (7.4-10.4); PLATELET 210 x1000/uL (130-400); RED BLOOD CELL COUNT 3.83 mill/uL (4.2-5.4); RED CELL DISTRIBUTION WIDTH 18.4 % (11.6-14.6)
[2018-10-12 08:08] LABS: PHOSPHORUS 2.6 mg/dL (2.5-4.9)
[2018-10-12] MEDS: PANTOPRAZOLE SODIUM 40 MG/VIAL IV SCH (08:26)
[2018-10-12] MEDS: CLOPIDOGREL 75MG TABLET PO SCH (08:26)
[2018-10-12] MEDS: AMLODIPINE 2.5MG TABLET PO SCH ×2 (08:26→17:17)
[2018-10-12] MEDS: ASPIRIN 81MG EC TABLET PO SCH (08:26)
[2018-10-12 09:53] LABS: PLATELET ESTIMATE NORMAL
[2018-10-12] MEDS: INSULIN GLARGINE UD 100 UNITS/ML SYR SUBCUT SCH ×2 (10:00→22:13)
[2018-10-12] MEDS: ENOXAPARIN 30MG/0.3ML SYR SUBCUT SCH (11:15)
[2018-10-12] MEDS ORDERED: POTASSIUM CHLORIDE 20MEQ TABLET SR PO SCH (13:15)
[2018-10-13] VITALS (28 sets, daily range): BP systolic 86–175; BP diastolic 44–89
[2018-10-13] MEDS: METOCLOPRAMIDE HCL 10MG/2ML VIAL IV SCH ×5 (00:57→23:21)
[2018-10-13] MEDS: PIPERACILLIN/TAZ 2.25G PREMIX 50 ML IV SCH ×3 (06:04→23:21)
[2018-10-13] MEDS: BLOOD SUGAR DIAGNOSTIC STRIP TEST SCH ×4 (06:20→21:54)
[2018-10-13] MEDS: INSULIN LISPRO 100 UNITS/ML SUBCUT SCH ×4 (07:20→21:00)
[2018-10-13] MEDS: PANTOPRAZOLE SODIUM 40 MG/VIAL IV SCH (08:29)
[2018-10-13] MEDS: AMLODIPINE 2.5MG TABLET PO SCH ×2 (08:29→17:00)
[2018-10-13] MEDS: INSULIN GLARGINE UD 100 UNITS/ML SYR SUBCUT SCH ×2 (11:16→21:54)
[2018-10-13 12:02] LABS: HEMATOCRIT. 36.5 % (36.0-48.0); HEMOGLOBIN. 11.8 g/dL (12.0-16.0); MEAN CORPUSCULAR HEMOGLOBIN 30.9 pg (28.0-32.0); MEAN CORPUSCULAR VOLUME 95.8 fL (81.0-99.0); MEAN PLATELET VOLUME 9.7 fl (7.4-10.4); PLATELET 177 x1000/uL (130-400); RED BLOOD CELL COUNT 3.81 mill/uL (4.2-5.4); RED CELL DISTRIBUTION WIDTH 17.9 % (11.6-14.6)
[2018-10-13 13:03] LABS: PLATELET ESTIMATE NORMAL
[2018-10-13] MEDS ORDERED: LIDOCAINE HCL 1% 20ML VIAL (Pyxis) INJ ONE (13:54)
[2018-10-13] MEDS ORDERED: SODIUM BICARBONATE 4% (2.4MEQ) 5ML VIAL IV ONE (13:54)
[2018-10-13] MEDS ORDERED: HEPARIN 1000 UNITS/ML 10ML ONE (13:54)
[2018-10-13] MEDS ORDERED: FENTANYL CITRATE/PF 50MCG/ML 2ML VIAL ONE (14:07)
[2018-10-13] MEDS ORDERED: FENTANYL CITRATE/PF 50MCG/ML 2ML VIAL IV ONE (14:15)
[2018-10-13] MEDS: CLOPIDOGREL 75MG TABLET PO SCH (15:41)
[2018-10-13] MEDS: ASPIRIN 81MG EC TABLET PO SCH (15:41)
[2018-10-13] MEDS: ENOXAPARIN 30MG/0.3ML SYR SUBCUT SCH (15:42)
[2018-10-13] MEDS ORDERED: INSULIN LISPRO 100 UNITS/ML SUBCUT SCH (16:50)
[2018-10-13] MEDS: GUAIFENESIN 200MG/10ML SUGAR FREE UDC PO PRN (23:21)
[2018-10-13] MEDS: LOPERAMIDE HCL 2MG CAPSULE PO PRN (23:21)
[2018-10-14] VITALS (11 sets, daily range): BP systolic 102–133; BP diastolic 51–70
[2018-10-14 04:22] LABS: HEMATOCRIT. 29.9 % (36.0-48.0); HEMOGLOBIN. 9.6 g/dL (12.0-16.0); MEAN CORPUSCULAR HEMOGLOBIN 30.2 pg (28.0-32.0); MEAN CORPUSCULAR VOLUME 94.4 fL (81.0-99.0); PLATELET 149 x1000/uL (130-400); RED BLOOD CELL COUNT 3.17 mill/uL (4.2-5.4); RED CELL DISTRIBUTION WIDTH 17.3 % (11.6-14.6)
[2018-10-14 04:28] LABS: CHLORIDE 98 mEq/L (98-107)
[2018-10-14 04:43] LABS: PLATELET ESTIMATE NORMAL
[2018-10-14] MEDS: GUAIFENESIN 200MG/10ML SUGAR FREE UDC PO PRN (05:46)
[2018-10-14] MEDS: LOPERAMIDE HCL 2MG CAPSULE PO PRN (05:46)
[2018-10-14] MEDS: METOCLOPRAMIDE HCL 10MG/2ML VIAL IV SCH (05:46)
[2018-10-14] MEDS: BLOOD SUGAR DIAGNOSTIC STRIP TEST SCH (05:49)
[2018-10-14] MEDS: PIPERACILLIN/TAZ 2.25G PREMIX 50 ML IV SCH (06:52)
[2018-10-14] MEDS: PANTOPRAZOLE SODIUM 40 MG/VIAL IV SCH (08:00)
[2018-10-14] MEDS: CLOPIDOGREL 75MG TABLET PO SCH (08:00)
[2018-10-14] MEDS: ASPIRIN 81MG EC TABLET PO SCH (08:00)
[2018-10-14] MEDS: INSULIN LISPRO 100 UNITS/ML SUBCUT SCH (08:01)
[2018-10-14] MEDS: AMLODIPINE 2.5MG TABLET PO SCH (08:02)
== END 2018-10-14 11:19 | disposition home or self-care (01) | DRG 721 ==
LOC: ER 11:01 → EDBEDREQ 12:30 → ENRESERV 20:35 → MICUNO 21:46 → 3WST 10-11 04:27
PROVIDERS: ADMIT Internal Medicine; ATTEND Internal Medicine
PROC: 05HY33Z Insertion of Infusion Device into Upper Vein, Percutaneous Approach (ICD-10-PCS; 2018-10-09)
PROC: B54MZZA Ultrasonography of Right Upper Extremity Veins, Guidance (ICD-10-PCS; 2018-10-09)
PROC: 5A1D70Z Performance of Urinary Filtration, Intermittent, Less than 6 Hours Per Day (ICD-10-PCS; principal; 2018-10-10)
PROC: 5A1D70Z Performance of Urinary Filtration, Intermittent, Less than 6 Hours Per Day (ICD-10-PCS; 2018-10-13)
PROC: 0JH63XZ Insertion of Tunneled Vascular Access Device into Chest Subcutaneous Tissue and Fascia, Percutaneous Approach (ICD-10-PCS; 2018-10-13)
PROC: 02H633Z Insertion of Infusion Device into Right Atrium, Percutaneous Approach (ICD-10-PCS; 2018-10-13)
PROC: B2141ZZ Fluoroscopy of Right Heart using Low Osmolar Contrast (ICD-10-PCS; 2018-10-13)
PROC: B244ZZZ Ultrasonography of Right Heart (ICD-10-PCS; 2018-10-13)
PROC: 02PAX3Z Removal of Infusion Device from Heart, External Approach (ICD-10-PCS; 2018-10-13)
DX: T80.219A Unspecified infection due to central venous catheter, initial encounter (principal); J96.00 Acute respiratory failure, unspecified whether with hypoxia or hypercapnia; R65.21 Severe sepsis with septic shock; G93.41 Metabolic encephalopathy; A41.9 Sepsis, unspecified organism; E10.10 Type 1 diabetes mellitus with ketoacidosis without coma; I12.0 Hypertensive chronic kidney disease with stage 5 chronic kidney disease or end stage renal disease; K31.84 Gastroparesis; E10.43 Type 1 diabetes mellitus with diabetic autonomic (poly)neuropathy; E44.1 Mild protein-calorie malnutrition; E87.1 Hypo-osmolality and hyponatremia; E87.5 Hyperkalemia; N39.0 Urinary tract infection, site not specified; N18.6 End stage renal disease; D63.8 Anemia in other chronic diseases classified elsewhere; E10.22 Type 1 diabetes mellitus with diabetic chronic kidney disease; E10.51 Type 1 diabetes mellitus with diabetic peripheral angiopathy without gangrene; E78.00 Pure hypercholesterolemia, unspecified; E87.8 Other disorders of electrolyte and fluid balance, not elsewhere classified; F32.9 Major depressive disorder, single episode, unspecified; I25.10 Atherosclerotic heart disease of native coronary artery without angina pectoris; I27.20 Pulmonary hypertension, unspecified; I34.0 Nonrheumatic mitral (valve) insufficiency; M62.82 Rhabdomyolysis; Z79.4 Long term (current) use of insulin; Z86.73 Personal history of transient ischemic attack (TIA), and cerebral infarction without residual deficits; I25.2 Old myocardial infarction; Z86.74 Personal history of sudden cardiac arrest; Z89.512 Acquired absence of left leg below knee; Z89.611 Acquired absence of right leg above knee; Z91.14 Patient's other noncompliance with medication regimen; Z95.5 Presence of coronary angioplasty implant and graft; Z99.2 Dependence on renal dialysis; Z68.25 Body mass index [BMI] 25.0-25.9, adult; Z88.0 Allergy status to penicillin
CPT/HCPCS: 12001; 36415; 36558; 36569; 36589; 36600; 71045; 76937; 77001; 80048; 80061; 80202; 82010; 82140; 82375; 82550; 82553; 82805; 82962; 83036; 83605; 83735; 83880; 83930; 84100; 84145; 84443; 84484; 85379; 87070; 87106; 92610; 93005; 93306; 93970; 96365; 96366; 96375; 97162; 97530; 99152; 99153; 99291; C1725; C1750; C1769; C9113; G0482; J0360; J1644; J1650; J1815; J1956; J2405; J2543; J2765; J3010; J3370; J3411; J3480; J3490; J7030; J7050; J7060; G0500